=== PATIENT | male | born 1935 | race Caucasian/White ===

== ENCOUNTER 2020-06-10 20:46 | Outpatient (REF) | payer MEDICARE, SELFPAY ==
[2020-06-10 18:36] LABS: HCT 45.2 % (40.0-50.0); HGB 14.8 g/dL (13.5-17.5); MCH 32.3 pg (27.0-33.0); MCHC 32.7 % (32.0-36.0); MCV 98.7 fL (80-95); MPV 11.5 fL (8.0-11.0); Platelet Count 219 10^3/uL (130-400); RBC 4.58 10^6/uL (4.36-5.78); RDW 12.8 % (11.8-14.1); RDW-SD 46.3 fL; WBC 6.83 10^3/uL (4.4-10.8)
[2020-06-10 18:49] LABS: ALT 21 U/L (16-63); AST 16 U/L (15-37); Alkaline Phosphatase 43 U/L (46-116); Anion Gap 6.8 mmol/L (3-11); BUN 22 mg/dL (7-18); Bilirubin, Total 0.5 mg/dL (0.2-1.0); CO2 30.2 mmol/L (21.0-32.0); CREATININE 0.98 mg/dL (0.70-1.30); Calcium 8.8 mg/dL (8.5-10.1); Chloride 101 mmol/L (98-107); Glucose 100 mg/dL (74-106); Potassium 4.5 mmol/L (3.5-5.1); Sodium 138 mmol/L (136-145); Total Protein 7.5 g/dL (6.4-8.2)
[2020-06-10 19:00] LABS: COMMENT (LAB VIEW ONLY) 144.24 mg/dL; Microalb ug/mg Crea 10.4 ug/mg Cr
[2020-06-13 10:00] LABS: PSA, Diagnostic 0.9 ng/mL (0.0-6.5)
== END 2020-06-10 21:06 ==
LOC: NCHCN 20:46
PROVIDERS: Visit Provider Family Medicine
DX: R60.9 Edema, unspecified (principal); R39.15 Urgency of urination
CPT/HCPCS: 80053; 85027; 82043; 82570; 84153

== ENCOUNTER 2020-06-17 04:29 | Outpatient (CLI) | payer MEDICARE, BC, SELFPAY ==
--- NOTE | 2020-06-17 | DI.US_ITS ---
EXAM: US RENAL CLINICAL HISTORY: BPH,URGENCY,N40,R39.15. TECHNIQUE: Kincaid scale, color and spectral Doppler were used. COMPARISON: No exams were available for comparison FINDINGS: Renal size in cm: Right: 10.2. Left: 12.6. Echogenicity: Normal. Hydronephrosis: No. Cyst or mass: No. Nephrolithiasis: No. Other findings: None. Bladder:Normal. Ureteral jets: Right: Visualized and unremarkable. Left: Visualized and unremarkable. Prevoid vol:121 cc Postvoid vol:82 cc Prostate: 25 cc Renal color flow: Symmetric and within normal limits. There appear to be 2 echogenic hepatic masses seen sonographically. The larger measures 3.8 x 3.1 x 2.7 cm. IMPRESSION: 1. 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 2. Echogenic hepatic masses. CT scan of the abdomen using the hemangioma protocol is recommended for further evaluation. DATA REPOSITORY:
== END 2020-06-17 04:49 ==
PROVIDERS: PCP Family Medicine; Visit Provider Family Medicine
DX: R39.15 Urgency of urination (principal); N40.1 Benign prostatic hyperplasia with lower urinary tract symptoms; K76.89 Other specified diseases of liver
CPT/HCPCS: 76770

== ENCOUNTER 2020-06-22 00:58 | Outpatient (CLI) | payer MEDICARE, BC, SELFPAY ==
--- NOTE | 2020-06-22 | DI.CT_ITS ---
EXAM: CT ABDOMEN WO/W CLINICAL HISTORY: LIVER MASS, K76.89, F/U US 2 LIVER MASSES. TECHNIQUE: Imaging Protocol: Axial computed tomography images with coronal and sagittal reformatted images were created and reviewed CONTRAST MATERIAL: Intravenous: Omnipaque 350 Contrast volume:100 cc Oral: no COMPARISON: US US RENAL from 06/17/2020 FINDINGS: ABDOMEN: Lung Bases: Calcification left lung base. Liver: Normal density. The prior ultrasound showed echogenic liver lesions. There is a 2.8 centimete r circumscribed lesion seen near the dome of the right lobe of the liver. There is a 2.3 centimeter lesion seen centrally in the right lobe and a 1.1 centimeter lesion seen posteriorly in the right lob e. There is a somewhat exophytic lesion seen inferiorly at the right lobe measuring 3.1 cm. A small lesion is seen anteriorly in the left lobe of the liver, near the falciform ligament. Gallbladder and biliary tract: No radiodense calculus or dilation. Pancreas: Fatty atrophy., No abnormal calcifications or inflammatory process. Spleen: Normal size there are scattered punctate calcifications present consistent with prior granulo matous exposure. Kidneys: Normal size, contour and axis. No radiodense stones or obstructive uropathy. No masses seen. Adrenal glands: No masses seen. Abdominal Aorta: Abdominal portion non-dilated. Atherosclerotic changes. Lymph nodes: There is a 1.9 centimeter right lower quadrant lymph node and a few other adjacent small er nodes. Bowel: There is a question of a mass versus area of contraction involving the terminal ileum. There i s no evidence of bowel dilatation. The stomach and visualized portions of the colon are unremarkable . Bones: Degenerative changes and Schmorl's nodes. IMPRESSION: Multiple liver lesions are identified which are not definitely hemangiomas. There are enlarged right lower abdominal mesenteric lymph nodes. Question of a mass in the terminal ileum. This area may be accessible endoscopically RADIATION DOSE DELIVERED: 1,954.78mGy.cm Total DLP DATA REPOSITORY: All CT scans at this facility are submitted to the National Radiology Data Registry (NRDR) Dose Index Registry (DIR) with the [employer] (ACR). RADIATION OPTIMIZATION: All CT scans at this facility use at least one of these dose optimization te chniques: automated exposure control; mA and/or kV adjustment per patient size (includes targeted exa ms where dose is matched to clinical indication); or iterative reconstruction.
[2020-06-22] MEDS: Omnipaque 350 MG/ML 100 ML BTL IV (09:04)
== END 2020-06-22 01:18 ==
PROVIDERS: PCP Family Medicine; Visit Provider Family Medicine
DX: K76.89 Other specified diseases of liver (principal); R59.0 Localized enlarged lymph nodes
CPT/HCPCS: 74170; J3490

== ENCOUNTER → 2020-06-29 08:53 | Outpatient (BNVA) | payer MEDICARE, BC, SELFPAY | PROVIDERS: PCP Family Medicine; Referring Provider Family Medicine; Visit Provider Nurse Practitioner Gerontology | DX: N40.1 Benign prostatic hyperplasia with lower urinary tract symptoms (principal); N13.8 Other obstructive and reflux uropathy | CPT/HCPCS: 81003; 99204 ==

== ENCOUNTER 2020-07-04 02:20 | Outpatient (CLI) | payer MEDICARE, BC, SELFPAY ==
--- NOTE | 2020-07-04 | DI.US_ITS ---
EXAM: US CAROTID CLINICAL HISTORY: LT SIDED BRUIT, DIZZINESS,R09.89. TECHNIQUE: Ultrasound carotids performed using grayscale, color-flow, and spectral Doppler imaging. COMPARISON: No exams were available for comparison FINDINGS: RIGHT CAROTID ARTERY: Plaque: Minimal calcific plaque in the carotid bulb and origin of the internal carotid artery. Velocity elevation: Proximal right ICA. LEFT CAROTID ARTERY: Plaque: Minimal calcific plaque in the carotid bulb. Velocity elevation: None. VERTEBRAL ARTERIES: Antegrade flow. Measurements: R Bulb: 141.6cm/s PS / 16.7cm/s ED R CCA: 160.1cm/s PS / 23.1cm/s ED R ECA: 123.6cm/s PS / 12.3cm/s ED R ICA Prox: 130.1cm/s PS /25.3cm/s ED R ICA Mid: 96.2cm/s PS / 25.3cm/s ED R ICA Distal: 99.8cm/s PS /29.6cm/s ED R Vert: 39cm/s PS / 11.6cm/s ED R SVR: 0.81 R DVR: 1.1 L Bulb: 123cm/s PS /13.7cm/s ED L CCA: 154.7cm/s PS / 23.1cm/s ED L ECA: 165.1cm/s PS /18.9cm/s ED L ICA Prox:64.2cm/s PS / 15cm/s ED L ICA Mid: 64.2cm/sPS / 15.2cm/s ED L ICA Distal: 71cm/s PS / 21cm/s ED L Vert: 36.8cm/s PS / 11.6cm/s ED L SVR: 0.46 L DVR: 0.91 IMPRESSION: 1. Mild atherosclerosis. 2. Velocity elevations seen in the proximal right ICA resulting in 50-69 percent stenosis. Criteria for Carotid Stenosis: Normal: ICA PSV <125 cm/s no plaque or intimal thickening is visible. <50% stenosis: ICA PSV <125 cm/s and plaque or intimal thickening is visible. 50-69% stenosis: ICA PSV is 125-250 cm/s and plaque is visible. >70% stenosis to near occlusion: ICA PSV >250 cm/s with visible plaque and luminal narrowing. DATA REPOSITORY:
== END 2020-07-04 02:40 ==
PROVIDERS: PCP Family Medicine; Visit Provider Physician Assistant
DX: R09.89 Other specified symptoms and signs involving the circulatory and respiratory systems (principal); R42 Dizziness and giddiness; I65.22 Occlusion and stenosis of left carotid artery
CPT/HCPCS: 93880

== ENCOUNTER 2020-07-21 01:16 | Outpatient (CLI) | payer MEDICARE, BC, OTHER, SELFPAY ==
--- NOTE | 2020-07-21 12:20 | DI.US_ITS ---
APPROVED REPORT EXAM: Comprehensive 2D, Doppler, and color-flow Echocardiogram Patient Location: Out-Patient Picker: Claudia Chun RDCS (AE) Indications: Dyspnea, Edema Other Information Study Quality: Adequate Conclusion Left ventricular wall thickness and chamber size. Ejection fraction is 55%. There are no segmental wall motion abnormalities Normal right ventricular size and systolic function Both atria are normal in size There are no structural valvular abnormalities Trace to mild mitral and tricuspid regurgitation. Trace pulmonic regurgitation. Normal estimated ri ght ventricular systolic pressure Wall motion Left Ventricle The left ventricle is normal size. The left ventricular systolic function is normal. The left ventric ular ejection fraction is within the normal range. There is normal left ventricular wall thickness. T here is normal LV segmental wall motion. There is no ventricular septal defect visualized. LVEF is 55 %. Right Ventricle The right ventricle is normal size. The right ventricular systolic function is normal. The RVSP is 31 .7 mmHg. Atria The left atrium size is normal. The right atrium size is normal. The interatrial septum is intact wit h no evidence for an atrial septal defect. Aortic Valve The aortic valve is normal in structure. Aortic valve is trileaflet. There is no aortic valvular sten osis. No aortic regurgitation is present. Mitral Valve The mitral valve is normal in structure. No evidence of mitral valve stenosis. Trace to mild mitral r egurgitation. Tricuspid Valve The tricuspid valve is normal in structure. There is no tricuspid valve stenosis. Trace to mild tricu spid regurgitation. Pulmonic Valve The pulmonary valve is normal in structure. There is no pulmonic valvular stenosis. Trace pulmonic re gurgitation. Great Vessels The aortic root is normal in size. The ascending aorta is normal in size. Ascending aorta is not well visualized. IVC is normal in size and collapses >50% with inspiration. Pericardium There is no pericardial effusion. 2D Dimensions IVSD d PLAX 0.93 cm M: 0.6-1.2 LV Vol A2C d MOD 90.0 mL LVPW d PLAX 0.91 cm M: 0.6 - 1.2 LV Vol A4C d MOD 114.2 mL LVID d PLAX 4.89 cm M: 4.2 - 5.8 LA vol/ BSA A2C s A-L 25.3 mL/m2 LVDs 3.45 cm M: 2.5 - 4.0 LA vol/ BSA A4C s A-L 26.9 mL/m2 Ao Root d 2.86 cm M: 3.1 - 3.7 LA Vol/ BSA Biplane s A-L 26.4 mL/m2 RA Area A4C 13.31 cm2 LA Area A4C s MOD 19.29 cm2 RA Vol/ BSA A4C s A-L 15.0 mL/m2 LA Area A2C s MOD 18.94 cm2 Ao Asc Diam d 3.43 cm M: 2.6 - 3.4 LV EF A4C MOD 55.2 % LV EF Teichholz 55.8 % LV EF A2C MOD 53.5 % LVEF (Carr's) 54.76 % M: 52 - 72 LV EF Biplane MOD 54.8 % LV Volume 76.06 mL M: 62 - 150 SV 56.05 mL LV Volume Index 37.10 mL/m2 M: 34 - 74 SV Index 27.25 mL/m2 LV Vol Biplane MOD 102.4 mL FS 29.15 % M-Mode TAPSE 2.24 cm (M/F) >1.7 LV Diastology MV E' medial 0.075 (>0.07 m/s) E/A Ratio 0.7 LV E/e MED 10.50 (<14) MV E Vmax 0.79 (0.4-1.3 m/s) MV E' lateral 0.103 (>0.1 m/s) MV A Vmax 1.10 (0.4-1.3 m/s) LV E/e LAT 7.65 (<14) MV E/A Ratio 0.71 MV E/E' medial 10.52 MV E/E' lateral 7.68 Aortic Valve LVOT Area 3.03 cm2 AoV Area Vmax 2.14 cm2 LVOT Vmax 1.17 m/s AoV Area/ BSA (Vmax) 1.04 cm2/m2 LVOT Mean Terrance. 0.69 m/s JANUSZ Mean Terrance. 1.93 cm2 LVOT Peak Grad 5.4 mmHg JANUSZ Mean Terrance. Index 0.94 cm2/m2 LVOT Mean Grad 2.3 mmHg LVOT VTI 0.256 m LVOT Diam s 1.95 cm AoV Vmax 1.65 m/s Velocity Ratio 0.70 AoV Mean Terrance. 1.08 m/s AoV Peak Grad 10.9 mmHg LVOT SV 77.64 mL AoV Mean Grad 5.4 mmHg AoV VTI 0.292 m AoV Area VTI 2.66 cm2 AoV Area/ BSA (VTI) 1.29 cm/m2 Mitral Valve MV DT 276 (160-240 msec) MV PHT 80 msec MV Area PHT 2.75 cm2 MV VTI 0.412 m MV Area VTI 1.89 (4.0-6.0 cm2) Pulmonary Valve PV Vmax 1.60 (0.5-1.5 m/s) RVOT Peak Gr. 1.62 mmHg PV Peak Grad 10.3 mmHg RVOT Mean Gr. 0.70 mmHg PV Mean Grad 4.7 mmHg RVOT VTI 0.129 m PV VTI 0.255 m RVOT Vmax 0.64 m/s Tricuspid Valve TR Peak Grad 28.7 mmHg TR Vmax 2.68 m/s RA Pressure 3.00 mmHg RVSP (TR) 31.7 mmHg
== END 2020-07-21 01:36 ==
PROVIDERS: PCP Family Medicine; Visit Provider Physician Assistant
DX: R09.89 Other specified symptoms and signs involving the circulatory and respiratory systems (principal); R60.9 Edema, unspecified; R06.09 Other forms of dyspnea
CPT/HCPCS: 93306

== ENCOUNTER 2020-08-31 10:59 | Outpatient (REF) | payer MEDICARE, SELFPAY ==
[2020-08-31 20:44] LABS: Calculated LDL 79 mg/dL (<100); Cholesterol 146 mg/dL (<200); Folate 19.5 ng/mL (8.6-20.0); HDL Cholesterol 42 mg/dL (40-60); TSH (W/Ref FT4) 1.56 uIU/mL (0.36-3.74); Triglyceride 126 mg/dL (<150); Vitamin B12 288 pg/mL (193-986)
[2020-08-31 21:12] LABS: NT-proBNP 107 pg/mL (<300)
[2020-09-05 14:42] LABS: Testosterone, Total 429 ng/dL (240-950)
== END 2020-08-31 11:19 ==
LOC: NCHCN 10:59
PROVIDERS: PCP Family Medicine; Visit Provider Physician Assistant
DX: R53.83 Other fatigue (principal); R41.3 Other amnesia; R60.0 Localized edema; R06.09 Other forms of dyspnea; I10 Essential (primary) hypertension
CPT/HCPCS: 80061; 84403; 82607; 82746; 83880; 84443

== ENCOUNTER → 2020-10-05 10:08 | Outpatient (BNVA) | payer MEDICARE, BC, SELFPAY | PROVIDERS: PCP Family Medicine; Referring Provider Family Medicine; Visit Provider Nurse Practitioner Gerontology | DX: N40.1 Benign prostatic hyperplasia with lower urinary tract symptoms (principal); N13.8 Other obstructive and reflux uropathy; Z79.899 Other long term (current) drug therapy | CPT/HCPCS: 99214 ==

== ENCOUNTER → 2021-01-03 11:11 | Outpatient (BNVA) | payer MEDICARE, SELFPAY | PROVIDERS: PCP Family Medicine; Referring Provider Family Medicine; Visit Provider Nurse Practitioner Gerontology | DX: N40.1 Benign prostatic hyperplasia with lower urinary tract symptoms (principal); N13.8 Other obstructive and reflux uropathy | CPT/HCPCS: 99214 ==

== ENCOUNTER 2021-05-30 01:51 | Outpatient (CLI) | payer MEDICARE, BC, SELFPAY ==
--- NOTE | 2021-05-30 | DI.US_ITS ---
Exam(s) US CAROTID EXAM: US CAROTID CLINICAL HISTORY: SURVEILLANCE OF CAROTID ARTERY STENOSIS,I65.29. TECHNIQUE: Ultrasound carotids performed using grayscale, color-flow, and spectral Doppler imaging. COMPARISON: US US CAROTID from 07/04/2020 FINDINGS: RIGHT CAROTID ARTERY: Plaque: [id number] calcific plaque in the proximal ECA, bulb and proximal ICA. Velocity elevation: Please see below. LEFT CAROTID ARTERY: Plaque: Mild calcific plaque in the carotid bulb, proximal ECA and proximal ICA. Velocity elevation: Elevated velocity seen in the distal left CCA in the carotid bulb. VERTEBRAL ARTERIES: Antegrade flow. Measurements: R Bulb: 172.5cm/s PS / 27.3cm/s ED R CCA: 180.9cm/s PS / 31.6cm/s ED R ECA: 129.7cm/s PS / 8.3cm/s ED R ICA Prox: 146.2cm/s PS /36.8cm/s ED R ICA Mid: 101.6cm/s PS / 27.3cm/s ED R ICA Distal: 102.5cm/s PS /20.7cm/s ED R Vert: 89.2cm/s PS / 28.9cm/s ED R SVR: 0.81 R DVR: 1.16 L Bulb: 211.1cm/s PS /24.6cm/s ED L CCA: 312.3cm/s PS / 25.1cm/s ED L ECA: 245.8cm/s PS /18.8cm/s ED L ICA Prox:78.4cm/s PS / 13.5cm/s ED L ICA Mid: 90cm/sPS / 23.8cm/s ED L ICA Distal: 88.7cm/s PS / 26.4cm/s ED L Vert: 53.3cm/s PS / 13.5cm/s ED L SVR: 0.29 L DVR: 0.95 IMPRESSION: 50-69 percent proximal right ICA stenosis. Criteria for Carotid Stenosis: Normal: ICA PSV <125 cm/s no plaque or intimal thickening is visible. <50% stenosis: ICA PSV <125 cm/s and plaque or intimal thickening is visible. 50-69% stenosis: ICA PSV is 125-250 cm/s and plaque is visible. >70% stenosis to near occlusion: ICA PSV >250 cm/s with visible plaque and luminal narrowing. DATA REPOSITORY:
== END 2021-05-30 02:11 ==
PROVIDERS: PCP Family Medicine; Visit Provider Physician Assistant
DX: I65.21 Occlusion and stenosis of right carotid artery (principal)
CPT/HCPCS: 93880

== ENCOUNTER → 2021-07-18 14:19 | Outpatient (BNVA) | payer MEDICARE, SELFPAY | PROVIDERS: PCP Family Medicine; Visit Provider Nurse Practitioner Gerontology | DX: N40.1 Benign prostatic hyperplasia with lower urinary tract symptoms (principal); N13.8 Other obstructive and reflux uropathy | CPT/HCPCS: 99214 ==

== ENCOUNTER 2021-09-19 16:23 | Outpatient (REF) | payer MEDICARE, SELFPAY ==
[2021-09-19 22:32] LABS: Anion Gap 8.1 mmol/L (3-11); BUN 24 mg/dL (7-18); CO2 28.9 mmol/L (21.0-32.0); Calcium 9.5 mg/dL (8.5-10.1); Chloride 102 mmol/L (98-107); Glucose 102 mg/dL (74-106); Potassium 4.5 mmol/L (3.5-5.1); Sodium 139 mmol/L (136-145)
== END 2021-09-19 16:24 | disposition home or self-care (01) ==
LOC: NCHCN 16:23
PROVIDERS: PCP Family Medicine; Visit Provider Physician Assistant
DX: I10 Essential (primary) hypertension (principal)
CPT/HCPCS: 80048

== ENCOUNTER → 2022-01-17 14:11 | Outpatient (BNVA) | payer MEDICARE, BC, OTHER, SELFPAY | PROVIDERS: PCP Physician Assistant; Referring Provider Family Medicine; Visit Provider Nurse Practitioner Gerontology | DX: N40.1 Benign prostatic hyperplasia with lower urinary tract symptoms (principal); N13.8 Other obstructive and reflux uropathy | CPT/HCPCS: 51798; 99214 ==

== ENCOUNTER 2022-02-19 13:58 | Outpatient (REF) | payer MEDICARE, SELFPAY ==
[2022-02-19 21:29] LABS: Abs Immature Grans 0.06 10^3/uL (0.0-0.06); Absolute Basophil Count 0.08 10^3/uL (0.0-0.2); Absolute Eosinophil Count 0.18 10^3/uL (0.0-0.7); Absolute Lymphocyte Count 1.43 10^3/uL (1.2-3.4); Absolute Monocyte Count 0.58 10^3/uL (0.1-0.8); Absolute Neutrophil Count 4.55 10^3/uL (1.2-6.7); Basophils % 1.2; Eosinophils % 2.6; HCT 42.9 % (40.0-50.0); HGB 14.2 g/dL (13.5-17.5); Immature Grans % 0.9; Lymphocytes % 20.8; MCH 32.9 pg (27.0-33.0); MCHC 33.1 % (32.0-36.0); MCV 100 fL (80-95); MPV 12.2 fL (8.0-11.0); Monocytes % 8.4; Neutrophils % 66.1; Nucleated RBC 0.3 % (0.0-0.3); Platelet Count 212 10^3/uL (130-400); RBC 4.31 10^6/uL (4.36-5.78); RDW 12.6 % (11.8-14.1); RDW-SD 46.3 fL; WBC 6.88 10^3/uL (4.4-10.8)
[2022-02-19 21:34] LABS: Anion Gap 10.7 mmol/L (3-11); BUN 27 mg/dL (7-18); CO2 27.3 mmol/L (21.0-32.0); CREATININE 1.1 mg/dL (0.70-1.30); Calcium 8.7 mg/dL (8.5-10.1); Chloride 101 mmol/L (98-107); Glucose 125 mg/dL (74-106); Potassium 4.3 mmol/L (3.5-5.1); Sodium 139 mmol/L (136-145)
== END 2022-02-19 13:59 | disposition home or self-care (01) ==
LOC: LBN 13:58
PROVIDERS: PCP Physician Assistant; Visit Provider Family Medicine
DX: R42 Dizziness and giddiness (principal)
CPT/HCPCS: 80048; 85025

== ENCOUNTER → 2022-05-09 12:40 | Outpatient (BNVA) | payer MEDICARE, BC, SELFPAY | PROVIDERS: PCP Physician Assistant; Referring Provider Physician Assistant; Visit Provider Nurse Practitioner Gerontology | DX: R35.1 Nocturia (principal); N40.1 Benign prostatic hyperplasia with lower urinary tract symptoms; N13.8 Other obstructive and reflux uropathy | CPT/HCPCS: 51798; 99214 ==

== ENCOUNTER → 2022-11-22 14:43 | Outpatient (BNVA) | payer MEDICARE, BC, SELFPAY | PROVIDERS: PCP Physician Assistant; Visit Provider Nurse Practitioner Gerontology | DX: N40.1 Benign prostatic hyperplasia with lower urinary tract symptoms (principal); N13.8 Other obstructive and reflux uropathy; R39.89 Other symptoms and signs involving the genitourinary system | CPT/HCPCS: 51798; 99213 ==

== ENCOUNTER 2023-04-10 06:37 | Emergency (ER) | payer MEDICARE, BC, SELFPAY ==
--- NOTE | 2023-04-10 06:30 | RT.EKG_ITS ---
APPROVED REPORT Exam: Resting ECG Reason for Exam: dizziness Patient Location: E HR:79 bpm ECG Measurements Heart Rate 79 AXIS MA 158 P 71 QRSd 101 QRS 2 QT 398 T -4 QTc 457 Conclusion Sinus rhythm...normal P axis, V-rate 60- 99
[2023-04-10 06:42] VITALS: BP 154/88; PULSE 77; RESP 22; TEMP 36.2; O2SAT 97
[2023-04-10 06:45] VITALS: RESP 19
--- NOTE | 2023-04-10 06:53 | ED.GENADUL_ITS ---
Discharge Plan Discharge Details Chief Complaint: Dizzy/Sync Primary Care Provider: Nathan Obregon ED Provider: Clarke Owen Home Meds and New Rx's Prescriptions: No Action furosemide 20 mg tablet 20 mg PO DAILY lisinopril-hydrochlorothiazide 10-12.5 mg tablet 1 tab PO DAILY alfuzosin [Uroxatral] 10 mg tablet extended release 24 hr 10 mg PO DAILY Qty: 30 0RF Hold Instructions: Home Medication placed on hold at Doctor's office Rx Instructions: administer after the same meal each day finasteride [Proscar] 5 mg tablet 5 mg PO DAILY Qty: 90 3RF tadalafil [Cialis] 5 mg tablet 5 mg PO DAILY Qty: 90 3RF lisinopril-hydrochlorothiazide 20-12.5 mg tablet 1 tab PO 1XD Medical Decision Making ECG Data Attestation: I personally reviewed and interpreted this ECG (s) as follows: Prior ECG tracings: not available for review Interpretation: Normal sinus rhythm heart rate 74 normal axis no acute ST-T changes HPI General Date/Time Provider Initiated Documentation: 04/10/23 06:52 . HPI Narrative: Patient presents emergency department complaining of dizziness since midnight last night. Reports 6 hours of feeling dizzy that things are spinning around him. Reports nausea but no vomiting. Denies any headache denies any chest pain denies any shortness of breath Related Data Home Medications Medication Instructions Recorded Confirmed alfuzosin 10 mg tablet,extended 10 mg PO DAILY #30 tabs 09/27/20 11/22/22 release 24 hr (Uroxatral) finasteride 5 mg tablet (Proscar) 5 mg PO DAILY #90 tabs 04/09/22 04/10/23 furosemide 20 mg tablet 20 mg PO DAILY 05/09/22 04/10/23 lisinopril 10 1 tab PO DAILY 05/09/22 11/22/22 mg-hydrochlorothiazide 12.5 mg tablet tadalafil 5 mg tablet (Cialis) 5 mg PO DAILY #90 tabs 12/06/22 04/10/23 lisinopril 20 1 tab PO 1XD 04/10/23 04/10/23 mg-hydrochlorothiazide 12.5 mg tablet Previous Rx's Medication Instructions Recorded alfuzosin 10 mg tablet,extended 10 mg PO DAILY #30 tabs 01/26/21 release 24 hr (Uroxatral) finasteride 5 mg tablet (Proscar) 5 mg PO DAILY #90 tabs 04/09/22 tadalafil 5 mg tablet (Cialis) 5 mg PO DAILY #90 tabs 12/06/22 Allergies Allergy/AdvReac Type Severity Reaction Status Date / Time No Known Allergies Allergy Unverified 04/10/23 06:45 General Stated Complaint: Dizzy/Sync BRITTANY: 3 Review of Systems Narrative: Review of Systems: Constitutional: No fevers, chills, sweats Eye: No recent visual problems ENT: No ear pain, nasal congestion, sore throat Respiratory: No shortness of breath, cough Cardiovascular: No Chest pain, palpitations, syncope Gastrointestinal: No nausea, vomiting, diarrhea Genitourinary: No hematuria Naren/Lymph: Negative for bruising tendency, swollen lymph glands Endocrine: Negative for excessive thirst, excessive hunger Musculoskeletal: No back pain, neck pain, joint pain, muscle pain, decreased range of motion Integumentary: No rash, pruritus, abrasions Neurologic: Alert & oriented X 4 Psychiatric: No anxiety, depression PFSH All Active Problems BPH w urinary obs/LUTS (Acute) Social History Smoking/Tobacco Use Status: Never Smoking risk assessment performed?: Yes Alcohol Intake: never Drug use: Never Substance use type: does not use Housing: apartment Do you feel safe at home: Yes Do you feel safe in your relationship?: Yes Exam Narrative Exam Narrative: Exam; vitals signs as reported above normal Constitutional; In mild acute distress, afebrile General: cooperative, healthy appearing, comfortable and no acute distress HEENT: Head: normal to inspection, no palpable skull fracture and normocephalic atraumatic Eyes: : appearance normal, both eyes and all related structures EOM intact bilaterally Pupils: PERRL : conjunctiva normal Direct ophthalmoscopy: normal light reflex, normal conjunctiva, normal visual acuity Ears: Normal TM, normal external canal Neck no JVD, supple non tender Neck: normal visual inspection, full ROM and no lymphadenopathy Chest: normal inspection of the chest Respiratory : normal respiratory effort and able to speak in complete sentences no wheezing no rales Cardio Rate: regular rate, rhythm: regular rhythm normal heart sounds S1 and S2 no murmurs, gallops, or rubs GI : normal to inspection, normal bowel sounds, soft, non tender, non distended, no organomegaly Back/Spine/ no CVA tenderness Thoracic/Lumbar Spine: no tenderness or deformities Skin no rashes or lesions Neuro: patient alert and no meningeal signs, Cranial Nerves: CN's II-XI intact bilaterally, Cognition: normal cognition, Speech: speech normal, Gait: normal gait, Depp tendon reflexes normal 2+ muscle strength 5/5 bilaterally Extremities, no edema, full range of motion, normal strength Course Vital Signs Vital signs: Vital Signs Temperature 36.2 C L 04/10/23 06:42 Pulse 77 04/10/23 06:42 Respiratory Rate 22 04/10/23 06:42 Blood Pressure 154/88 H 04/10/23 06:42 Pulse Oximetry 97 04/10/23 06:42 Temperature 36.2 C L 04/10/23 06:42 Pulse 77 04/10/23 06:42 Respiratory Rate 19 04/10/23 06:45 Respiratory Effort Normal, Non-Labored 04/10/23 06:45 Respiratory Depth Normal 04/10/23 06:45 Respiratory Pattern Normal 04/10/23 06:45 Blood Pressure 154/88 H 04/10/23 06:42 Blood Pressure Position Sitting 04/10/23 06:42 Pulse Oximetry 97 04/10/23 06:42 Oxygen Delivery Method Room Air 04/10/23 06:42 Oxygen Flow Rate 0 04/10/23 06:42 Pain Level 0 04/10/23 06:42
[2023-04-10] MEDS: Ondansetron 4 MG/2 ML VIAL IVP (07:16)
[2023-04-10] MEDS: Meclizine 25 MG TAB PO ×2 (07:17→10:22)
[2023-04-10] MEDS: Normal Saline 1,000 ML 1000 ML IV (07:24)
[2023-04-10 07:30] LABS: Abs Immature Grans 0.05 10^3/uL (0.0-0.06); Absolute Basophil Count 0.05 10^3/uL (0.0-0.2); Absolute Eosinophil Count 0.04 10^3/uL (0.0-0.7); Absolute Lymphocyte Count 0.88 10^3/uL (1.2-3.4); Absolute Monocyte Count 0.27 10^3/uL (0.1-0.8); Absolute Neutrophil Count 5.11 10^3/uL (1.2-6.7); Basophils % 0.8; Eosinophils % 0.6; HGB 12.6 g/dL (13.5-17.5); Immature Grans % 0.8; Lymphocytes % 13.8; MCH 33.4 pg (27.0-33.0); MCHC 34.1 % (32.0-36.0); MCV 98 fL (80-95); MPV 11.1 fL (8.0-11.0); Monocytes % 4.2; Neutrophils % 79.8; Platelet Count 189 10^3/uL (130-400); RBC 3.77 10^6/uL (4.36-5.78); RDW 13.2 % (11.8-14.1); RDW-SD 47.2 fL
[2023-04-10 07:52] LABS: ALT 12 U/L (16-63); AST 12 U/L (15-37); Albumin 3.6 g/dL (3.4-5.0); Alkaline Phosphatase 46 U/L (46-116); BUN 53 mg/dL (7-18); Bilirubin, Total 0.6 mg/dL (0.2-1.0); CREATININE 1.4 mg/dL (0.70-1.30); Calcium 8.8 mg/dL (8.5-10.1); Chloride 105 mmol/L (98-107); Estimated GFR 49.25 (mL/min/1.73m2); Glucose 159 mg/dL (74-106); Magnesium 2.3 mg/dL (1.8-2.4); Potassium 4.5 mmol/L (3.5-5.1); Sodium 139 mmol/L (136-145); Total Protein 7.3 g/dL (6.4-8.2); Troponin I < 50 ng/L (<or=60)
--- NOTE | 2023-04-10 08:03 | W.EDPROG ---
Date of service: 04/10/23 Time of Service: 10:00 Medical Decision Making [address] 0845 patient reports that he has had vertigo for the past couple of months, always at night after he lies down and turns his head to the right. He says it lasts for 1 to 2 minutes. The difference last night is that it went on all night long, causing him to come into the emergency department. He also feels diffusely weak but always feels like this when he has not slept much; he did not sleep much last night. There is no acute hearing change or tinnitus. He has no focal neurologic deficits other than the dizziness. Pt. c/o N but no V. He denies SOSA. 1020 The patient had initially told me his dizziness was better but now told the nurse he needs more dizzy medicine. His MRI is negative. He is getting more meclizine at this time. He told her he needed to sleep more. 1125 How patient states that he only has dizziness if he turns his head to the left. He also says that his walker is too tall for him and he cannot use it. And asked nursing to look into this. The patient has his eyes open and is moving without difficulty in bed. He has gotten up and ambulated with the nursing staff and appears safe for discharge. Medical Records Medical records reviewed: Yes I reviewed the patient's medical records. Imaging Data Radiologic Study #2: Imaging: MRI (Exam(s) MR BRAIN WO EXAM: MR BRAIN WO CLINICAL HISTORY: Patientpersistant vergio, eval post fossa CVA TECHNIQUE: Multiplanar multisequence MRI of the brain was performed. COMPARISON: CT CT HEAD WO from 04/10/2023 FINDINGS: VENTRICLES AND EXTRA AXIAL SPACES: Normal in size and morphology ) and CT Scan (Brain: NAD) Lab Data Lab results reviewed: Yes I reviewed the patient's lab results. Lab results narrative: BUN and CR elevated vs 02/22. ECG Data Attestation: I personally reviewed and interpreted this ECG (s) as follows: (NSR, nl EKG) Interpretation: Exam(s) a CT:CT head wo Exam(s) CT HEAD WO EXAM: ? CT HEAD WO CLINICAL HISTORY: ? dizziness. ? TECHNIQUE:? Imaging Protocol: Axial computed tomography images with coronal and sagittal reformatted images were created and reviewed COMPARISON:? No exams were available for comparison FINDINGS: Ventricles and Extra axial spaces: Normal in size and morphology for the patient's age. Hemorrhage: None. Cerebral parenchyma: ? Mild atrophy.? Moderate white matter changes consistent with small vessel disease. Midline shift: None. Brainstem/Cerebellum: Normal. Calvarium: Normal. Visualized Paranasal sinuses/Mastoids: Clear. IMPRESSION: Age related changes.? No acute abnormality. Sign Out Sign Out Data: Sign Out Comment: Patient presented with dizziness and vertiginous feeling who has not been drinking fluids since he is dehydrated CT scan and labs are pending. Last updated by Clarke Owen MD at 04/10/23 07:31 Discharge Plan Disposition Patient Disposition: Home Condition: Good Discharge Details Clinical Impression: Benign paroxysmal positional nystagmus Primary Care Provider: Nathan Obregon ED Provider: Mary Lau Home Meds and New Rx's Prescriptions: New meclizine 25 mg tablet 25 mg PO QID PRN (Reason: dizziness) Qty: 30 0RF Continued furosemide 20 mg tablet 20 mg PO DAILY lisinopril-hydrochlorothiazide 10-12.5 mg tablet 1 tab PO DAILY alfuzosin [Uroxatral] 10 mg tablet extended release 24 hr 10 mg PO DAILY Qty: 30 0RF Hold Instructions: Home Medication placed on hold at Doctor's office Rx Instructions: administer after the same meal each day finasteride [Proscar] 5 mg tablet 5 mg PO DAILY Qty: 90 3RF tadalafil [Cialis] 5 mg tablet 5 mg PO DAILY Qty: 90 3RF lisinopril-hydrochlorothiazide 20-12.5 mg tablet 1 tab PO 1XD Discharge Instructions Instructions: Benign Paroxysmal Positional Vertigo (ED) Additional Instructions: Return home and get some sleep. Meclizine 25 to 50 mg every 6-8 hours as needed for dizziness. Recheck with your primary care doc in the next few days. Use your walker at home to get around. Help your friend adjusted. Return to ED for any questions or concerns.
--- NOTE | 2023-04-10 08:15 | DI.CT_ITS ---
Exam(s) CT HEAD WO EXAM: CT HEAD WO CLINICAL HISTORY: dizziness. TECHNIQUE: Imaging Protocol: Axial computed tomography images with coronal and sagittal reformatted images were created and reviewed COMPARISON: No exams were available for comparison FINDINGS: Ventricles and Extra axial spaces: Normal in size and morphology for the patient's age. Hemorrhage: None. Cerebral parenchyma: Mild atrophy. Moderate white matter changes consistent with small vessel dise ase. Midline shift: None. Brainstem/Cerebellum: Normal. Calvarium: Normal. Visualized Paranasal sinuses/Mastoids: Clear. IMPRESSION: Age related changes. No acute abnormality. RADIATION DOSE DELIVERED: 863.35mGy.cm Total DLP 863.35mGy.cm Total DLP DATA REPOSITORY: All CT scans at this facility are submitted to the National Radiology Data Registry (NRDR) Dose Index Registry (DIR) with the [employer] (A[employer]). RADIATION OPTIMIZATION: All CT scans at this facility use at least one of these dose optimization te chniques: automated exposure control; mA and/or kV adjustment per patient size (includes targeted exa ms where dose is matched to clinical indication); or iterative reconstruction.
[2023-04-10 08:31] LABS: Bilirubin Negative (Negative); Blood Negative (Negative); Clarity Clear (Clear); Glucose Negative (Negative); Ketones Negative (Negative); Leukocyte Esterase Negative (Negative); Nitrite Negative (Negative); Urobilinogen 0.2 mg/dL (Up to 0.2); pH 6.5 (5-8)
--- NOTE | 2023-04-10 08:45 | DI.MRI_ITS ---
Exam(s) MR BRAIN WO EXAM: MR BRAIN WO CLINICAL HISTORY: Patientpersistant vergio, eval post fossa CVA TECHNIQUE: Multiplanar multisequence MRI of the brain was performed. COMPARISON: CT CT HEAD WO from 04/10/2023 FINDINGS: VENTRICLES AND EXTRA AXIAL SPACES: Normal in size and morphology for the degree of atrophy. MIDLINE SHIFT: None. CEREBRAL PARENCHYMA: No focus of restricted diffusion to suggest acute infarct. No space-occupying le zack identified. Moderate atrophy. Moderate to severe areas of high signal in the periventricular w alma matter condition with chronic microvascular changes. HEMORRHAGE: None. BRAINSTEM/CEREBELLUM: Normal. VISUALIZED PARANASAL SINUSES/MASTOIDS:Clear. Vasculature: Normal flow void. PITUITARY GLAND: Unremarkable. ORBITS: Unremarkable. IMPRESSION: Atrophy and white matter changes of small vessel disease. No acute abnormality DATA REPOSITORY:
--- NOTE | 2023-04-10 11:33 | NUR.NOTE ---
Nursing Note: pcp referral
[2023-04-10 11:44] VITALS: BP 134/75; PULSE 77; RESP 13; TEMP 37; O2SAT 95
--- NOTE | 2023-04-10 11:47 | NUR.NOTE ---
Nursing Note: Pt ambulated to personal vehicle with walker independently without incident. Vehicle driven by son-in-law (Will). Urine odor noted by RN and MD. RN asked pt if he needed a change of clothing for the ride home; pt declined needing a change of clothing. RN asked pt if he had everything he needed for self care at home. Pt stated he did.
== END 2023-04-10 11:44 | disposition home or self-care (01) ==
PROVIDERS: Emergency Medicine Emergency Medical Services; Emergency Provider Emergency Medicine; PCP Physician Assistant
DX: R42 Dizziness and giddiness (principal)
CPT/HCPCS: 80053; 93005; 96361; 96374; 99285; 70450; 70551; 81003; 83735; 84484; 85025; 93010; 99284; J2405

== ENCOUNTER → 2023-06-11 09:17 | Outpatient (BNVA) | payer MEDICARE, BC, SELFPAY | PROVIDERS: PCP Physician Assistant; Referring Provider Physician Assistant; Visit Provider Nurse Practitioner Gerontology | DX: N40.1 Benign prostatic hyperplasia with lower urinary tract symptoms (principal); N13.8 Other obstructive and reflux uropathy | CPT/HCPCS: 51798; 99213 ==

== ENCOUNTER 2023-07-15 13:56 | Outpatient (REF) | payer MEDICARE, SELFPAY ==
[2023-07-15 15:43] LABS: ALT 20 U/L (16-63); AST 12 U/L (15-37); Albumin 3.7 g/dL (3.4-5.0); Alkaline Phosphatase 44 U/L (46-116); Anion Gap 8.2 mmol/L (3-11); BUN 39 mg/dL (7-18); Bilirubin, Total 0.5 mg/dL (0.2-1.0); CO2 27.8 mmol/L (21.0-32.0); CREATININE 1.3 mg/dL (0.70-1.30); Calcium 9.3 mg/dL (8.5-10.1); Calculated LDL 98 mg/dL (<100); Chloride 102 mmol/L (98-107); Cholesterol 171 mg/dL (<200); Estimated GFR 53.84 (mL/min/1.73m2); Glucose 108 mg/dL (74-106); HDL Cholesterol 52 mg/dL (40-60); Potassium 4.3 mmol/L (3.5-5.1); Sodium 138 mmol/L (136-145); Total Protein 7.7 g/dL (6.4-8.2); Triglyceride 107 mg/dL (<150)
== END 2023-07-15 13:57 | disposition home or self-care (01) ==
LOC: NCHCN 13:56
PROVIDERS: PCP Physician Assistant; Visit Provider Physician Assistant
DX: I10 Essential (primary) hypertension (principal); N40.0 Benign prostatic hyperplasia without lower urinary tract symptoms
CPT/HCPCS: 80053; 80061

== ENCOUNTER → 2023-12-18 08:05 | Outpatient (BNVA) | payer MEDICARE, BC, SELFPAY | PROVIDERS: PCP Physician Assistant; Referring Provider Physician Assistant; Visit Provider Nurse Practitioner Gerontology | DX: N40.1 Benign prostatic hyperplasia with lower urinary tract symptoms (principal); N13.8 Other obstructive and reflux uropathy; R35.0 Frequency of micturition | CPT/HCPCS: 51798; 99214 ==

== ENCOUNTER 2024-06-15 19:37 | Outpatient (REF) | payer MEDICARE, BC, SELFPAY ==
[2024-06-15 19:27] LABS: Anion Gap 10.6 mmol/L (3-11); BUN 24 mg/dL (7-18); CO2 28.4 mmol/L (21.0-32.0); CREATININE 1.3 mg/dL (0.70-1.30); Calcium 9.4 mg/dL (8.5-10.1); Chloride 105 mmol/L (98-107); Glucose 103 mg/dL (74-106); Potassium 4.3 mmol/L (3.5-5.1); Sodium 144 mmol/L (136-145)
== END 2024-06-15 19:38 | disposition home or self-care (01) ==
LOC: NCHCN 19:37
PROVIDERS: PCP Physician Assistant; Visit Provider Physician Assistant
DX: I10 Essential (primary) hypertension (principal)
CPT/HCPCS: 80048

== ENCOUNTER → 2024-06-23 07:55 | Outpatient (BNVA) | payer MEDICARE, BC, SELFPAY | PROVIDERS: PCP Physician Assistant; Referring Provider Physician Assistant; Visit Provider Nurse Practitioner Gerontology | DX: N40.1 Benign prostatic hyperplasia with lower urinary tract symptoms (principal); N13.8 Other obstructive and reflux uropathy | CPT/HCPCS: 51798; 99213 ==

== ENCOUNTER → 2024-12-29 08:12 | Outpatient (BNVA) | payer MEDICARE, BC, SELFPAY | PROVIDERS: PCP Physician Assistant; Referring Provider Physician Assistant; Visit Provider Nurse Practitioner Gerontology | DX: N40.1 Benign prostatic hyperplasia with lower urinary tract symptoms (principal); N13.8 Other obstructive and reflux uropathy; R39.9 Unspecified symptoms and signs involving the genitourinary system; R35.0 Frequency of micturition; N39.498 Other specified urinary incontinence | CPT/HCPCS: 51798; 99214 ==

== ENCOUNTER → 2025-06-29 09:53 | Outpatient (BNVA) | payer MEDICARE, BC, SELFPAY | PROVIDERS: PCP Physician Assistant; Referring Provider Physician Assistant; Visit Provider Nurse Practitioner Gerontology | DX: N40.1 Benign prostatic hyperplasia with lower urinary tract symptoms (principal); N13.8 Other obstructive and reflux uropathy; R39.9 Unspecified symptoms and signs involving the genitourinary system | CPT/HCPCS: 99213; 51798 ==

== ENCOUNTER 2025-08-13 12:19 | Outpatient (REF) | payer MEDICARE, BC, SELFPAY ==
[2025-08-13 15:41] LABS: HCT 38.5 % (40.0-50.0); HGB 12.8 g/dL (13.5-17.5); MCH 33.4 pg (27.0-33.0); MCHC 33.2 % (32.0-36.0); MCV 101 fL (80-95); MPV 11.9 fL (8.0-11.0); Platelet Count 225 10^3/uL (130-400); RBC 3.83 10^6/uL (4.36-5.78); RDW 13.5 % (11.8-14.1); RDW-SD 49.8 fL; WBC 7.51 10^3/uL (4.4-10.8)
[2025-08-13 16:01] LABS: Anion Gap 8.9 mmol/L (3-11); BUN 27 mg/dL (9-23); CO2 28.1 mmol/L (20.0-31.0); Calcium 9.4 mg/dL (8.3-10.6); Chloride 105 mmol/L (98-107); Glucose 99 mg/dL (74-106); Potassium 4.4 mmol/L (3.5-5.1); Sodium 142 mmol/L (136-145)
== END 2025-08-13 12:20 | disposition home or self-care (01) ==
LOC: NCHCN 12:19
PROVIDERS: PCP Physician Assistant; Visit Provider Physician Assistant
DX: I10 Essential (primary) hypertension (principal)
CPT/HCPCS: 80048; 85027